=== PATIENT | male | born 1990 | race Caucasian/White ===

== ENCOUNTER 2019-05-07 07:02 | Emergency (ER) | payer SELFPAY ==
[2019-05-07 07:17] VITALS: BP 137/91
--- NOTE | 2019-05-07 07:28 | UC ---
Abdominal Pain Male HPI - HPI Summary HPI Summary: cramping abdominal pain x 3 days pain is 4 out 10 at epigastric area no radiation, worse with eating , better npo + vomiting and diarrhea , + chills, ? fever - History of Current Complaint Chief Complaint: UCGeneralIllness Stated Complaint: FEVER,VOMITTING, DIARRHEA Time Seen by Provider: 05/07/19 07:11 Hx Obtained From: Patient Onset/Duration: Gradual Onset, Lasting Days - 3, Still Present Timing: Constant Severity Initially: Moderate Severity Currently: Moderate Pain Intensity: 0 Location: Epigastric Radiates: No Character: Cramping Aggravating Factor(s): Food Alleviating Factor(s): Rest Associated Signs And Symptoms: Positive: Decreased Appetite, Nausea, Vomiting, Diarrhea. Negative: Fever, Cough, Chest Pain, Back Pain, Constipation, Blood in Stool, Urinary Symptoms - Allergies/Home Medications Allergies/Adverse Reactions: Allergies Allergy/AdvReac Type Severity Reaction Status Date / Time No Known Allergies Allergy Verified 05/07/19 07:17 Home Medications: Home Medications NK [No Home Medications Reported] 05/07/19 [History Confirmed 05/07/19] PMH/Surg Hx/FS Hx/Imm Hx Previously Healthy: Yes - Surgical History Surgical History: None - Family History Known Family History: Positive: Non-Contributory - Social History Alcohol Use: Weekly Substance Use Type: None Smoking Status (MU): Never Smoked Tobacco Review of Systems All Other Systems Reviewed And Are Negative: Yes Constitutional: Positive: Chills, Fatigue Skin: Positive: Negative Eyes: Positive: Negative ENT: Positive: Negative Respiratory: Positive: Negative Cardiovascular: Positive: Negative Gastrointestinal: Positive: Abdominal Pain, Vomiting, Diarrhea, Nausea Genitourinary: Positive: Negative Is Patient Immunocompromised?: No Physical Exam Triage Information Reviewed: Yes Appearance: Well-Appearing, No Pain Distress, Well-Nourished Vital Signs: Initial Vital Signs Temp 97.5 F 05/07/19 07:12 Pulse 66 05/07/19 07:12 Resp 18 05/07/19 07:12 BP 137/91 05/07/19 07:12 Pulse Ox 96 05/07/19 07:12 Vital Signs Reviewed: Yes Eye Exam: Normal Eyes: Positive: Conjunctiva Clear ENT: Positive: Normal ENT inspection, Hearing grossly normal, Pharynx normal Neck exam: Normal Neck: Positive: Supple, Nontender, No Lymphadenopathy Respiratory: Positive: Chest non-tender, Lungs clear, Normal breath sounds Cardiovascular: Positive: RRR, No Murmur, Pulses Normal Abdomen Description: Positive: Nontender, Soft. Negative: CVA Tenderness (R), CVA Tenderness (L), Distended, Guarding Bowel Sounds: Positive: Present Skin Exam: Normal Abd Pain Male Course/Dx - Differential Dx/Clinical Impression Provider Diagnosis: Gastroenteritis Discharge ED - Sign-Out/Discharge Documenting (check all that apply): Patient Departure All imaging exams completed and their final reports reviewed: No Studies - Discharge Plan Condition: Stable Disposition: HOME Patient Education Materials: Gastroenteritis (ED) Referrals: No Primary Care Phys,NOPCP [Primary Care Provider] - If Needed - Billing Disposition and Condition Condition: STABLE Disposition: Home
== END 2019-05-07 07:29 | disposition home or self-care (01) ==
LOC: UCCORT 07:02
DX: K52.9 Noninfective gastroenteritis and colitis, unspecified (principal); R68.83 Chills (without fever); R53.83 Other fatigue
CPT/HCPCS: 99201; G0463